=== PATIENT | male | born 1960 | race Caucasian/White ===

== ENCOUNTER 2024-10-12 09:32 | Outpatient (CLI) | payer OTHER | END 2024-10-12 09:33 | disposition home or self-care (01) | LOC: RAD 09:32 | PROVIDERS: ATTEND Internal Medicine | DX: R06.00 Dyspnea, unspecified (principal); J44.9 Chronic obstructive pulmonary disease, unspecified | CPT/HCPCS: 36415; 71046; 82103; 82785; 85025 ==